=== PATIENT | male | born 1955 | race American Indian/Alaskan Native ===

== ENCOUNTER 2021-10-06 10:39 | Emergency (ER) | payer MEDICARE ==
[2021-10-06] MEDS ORDERED: IBUPROFEN 800 MG TAB PO ONE (10:52)
[2021-10-06] MEDS ORDERED: predniSONE 20 MG TAB PO ONE (10:57)
[2021-10-06] MEDS ORDERED: amLODIPine 5 MG TAB PO ONE (10:57)
--- NOTE | 2021-10-06 11:01 | Emergency Department Report ---
Upper Extremity - HPI Chief Complaint: Extremity Problem,Nontraumatic Stated Complaint: BILATERAL WRIST PAIN Time Seen by Provider: 10/06/21 10:52 Occurred When: >5 Days Mechanism: Other Severity: moderate Symptoms: Yes Pain with Movement, No Deformity, No Limited Range of Movement, No Numbness, No Weakness, No Swelling, No Bruising/Ecchymosis, No Laceration or Abrasion Other History: 66 yo comes to ER with b wrist pain- over 20 years. Worse last night so he comes to ER. no new trauma. neurovasc intact. Ambulatory and non ill appearing. home med. norvasc. He states OTC usually helps but last night the pain kept him up. He adds this happens once in a while. BP elevated. no cp. no sob. no headache. neuro intact ED Review of Systems ROS: Stated complaint: BILATERAL WRIST PAIN Other details as noted in HPI Comment: All other systems reviewed and negative ED Past Medical Hx - Past Medical History Previous Medical History?: Yes Hx Hypertension: Yes - Surgical History Past Surgical History?: No - Family History Family history: no significant - Social History Smoking Status: Never Smoker Substance Use Type: None - Medications Home Medications: Home Medications Medication Instructions Recorded Confirmed Last Taken Type Ibuprofen [Motrin] 800 mg PO Q8HR PRN #30 tablet 10/06/21 Unknown Rx predniSONE [Deltasone] 20 mg PO DAILY #5 tablet 10/06/21 Unknown Rx Upper Extremity Exam - Exam General: Vital signs noted. No distress. Alert and acting appropriately. Head and Torso: No HEENT Abnormality, No Neck Tenderness, No Chest/Lungs Abnormality, No Abdominal Tenderness, No Back Tenderness Shoulder Exam: Yes Normal Range of Motion in Shoulder, No Shoulder Tenderness, No Clavicle Tenderness, No Shoulder Deformity, No AC Joint Tenderness Arm Exam: No Arm/Humerus Tenderness, No Arm Deformity Elbow: No Elbow Tenderness, No Normal Range of Motion in Elbow, No Elbow Deformity Forearm: No Forearm Tenderness, No Forearm Deformity, No Pain with Pronation, No Pain with Supination Wrist: Yes Normal ROM in Wrist, No Wrist Tenderness, No Wrist Deformity, No Snuffbox Tenderness, No Pain with Axial Thumb Compression Hand: Yes Normal ROM in Digit(s), No Hand Tenderness, No Hand Deformity, No Digit Tenderness, No Digit(s) Deformity, No Tendon Dysfunction CMS Exam: No Broken Skin, No Normal Distal Pulses, No Normal Capillary Refill, No Normal Distal Sensation ED Course Vital Signs 10/06/21 10:50 Temperature 98 F Pulse Rate 89 Respiratory 16 Rate Blood Pressure 187/102 [Left] O2 Sat by Pulse 96 Oximetry ED Medical Decision Making - Medical Decision Making Vital Signs 10/06/21 10:50 Temperature 98 F Pulse Rate 89 Respiratory 16 Rate Blood Pressure 187/102 [Left] O2 Sat by Pulse 96 Oximetry bp elevated pt took his norvasc 5 mg this AM given additional 5 mg in er he states it is always high at doctors he has no cp no sob ambulatory and non ill appearing he understands he needs to monitor bp and follow up with pcp a/c wrist pain old injury could not sleep last night due to the pain came to ER for pain meds full rom neurovasc intact prednisone and motrin in Er dc home with dc plan of care including diet/activity meds and follow up. he verbalizes understanding of plan of care - Differential Diagnosis a/c pain Critical care attestation.: If time is entered above; I have spent that time in minutes in the direct care of this critically ill patient, excluding procedure time. ED Disposition Clinical Impression: Chronic pain, Hypertension Disposition: 01 HOME / SELF CARE / HOMELESS Is pt being admited?: No Does the pt Need Aspirin: No Condition: Stable Instructions: Hypertension (ED), Hypertension, Adult Additional Instructions: continue your amlodipine monitor blood pressure follow up with you pcp next week to reeval meds as ordered for pain follow up with pcp next week for ongoing evaluation alternate heat and cold compresses to wrist Referrals: VIRAL FAUSTIN MD [Staff Physician] - 3-5 Days Time of Disposition: 11:00
[2021-10-06 12:01] VITALS: BP 156/77
== END 2021-10-06 12:01 | disposition home or self-care (01) ==
LOC: ED 10:39
DX: G89.29 Other chronic pain (principal); M25.539 Pain in unspecified wrist; I10 Essential (primary) hypertension
CPT/HCPCS: 99282